=== PATIENT | male | born 1990 | race Two or more races ===

== ENCOUNTER 2023-04-27 16:11 | Emergency (ER) | payer BC, OTHER ==
[~2023-04-27] VITALS: Ht 180.3 cm; Wt 113.7 kg
[2023-04-27 17:08] VITALS: BP 122/87; RESP 16; TEMP 98.9; O2SAT 98
[2023-04-27] MEDS ORDERED: cefTRIAXone SOD 1,000 MG VL IM ONE (17:15)
[2023-04-27] MEDS ORDERED: AZIT500T66 PO (17:25)
[2023-04-27] MEDS ORDERED: IBUP-1456 PO (17:25)
[2023-04-27 17:31] VITALS: PULSE 98
== END 2023-04-27 17:32 | disposition home or self-care (01) ==
LOC: ER 16:11
DX: J03.90 Acute tonsillitis, unspecified (principal)
CPT/HCPCS: 96372; 99283; J0696